=== PATIENT | female | born 1940 | race Caucasian/White ===

== ENCOUNTER → 2019-03-08 11:23 | Day surgery (SDC) | payer MEDICARE, OTHER ==
[~2019-03-08 11:23] MED LIST: Acetaminophen TAB* 325 MG PO PRN; Buffered Lidocaine 1% SYRIN* 1 ML/SYRINGE INTRADERM ONE; Dexamethasone IV* 4 MG/ML 1 ML (4 MG) ONE; Famotidine IV* 10 MG/ML 2 ML (20 mg) IV ONE; Famotidine IV* 10 MG/ML 2 ML (20 mg) ONE; KETAMINE HCL* 50 MG/ML 10 ML VIAL ONE; Ketorolac INJ* 30 MG/ML 1 ML VIAL ONE; Lactated Ringers 1000 ML Bag* 1,000 ML IV SCH; Lidocaine 1% MPF ** 5 ML VIAL ONE; Lidocaine 2% PF * 5 ML VIAL ONE; Midazolam* 1 MG/ML 5 ML VIAL (5 MG) ONE; Naloxone* 0.4 MG/ML 1 ML VIAL IV PRN; Ondansetron INJ* 2 MG/ML VIAL ONE; Propofol* 10 MG/ML 20 ML BTL ONE; ROPIVACAINE 5 MG/ML 30 ML BTL (0.5%) ONE; ceFAZolin 2 GM in NS PREMIX(*) 2 GM/100 ML BAG IVPB ONE; fentaNYL* 50 MCG/ML 2 ML VIAL (100 MCG VIAL) ONE; oxyCODONE TAB* 5 MG TAB PO PRN
[2019-03-08 17:03] VITALS: BP 139/74
--- NOTE | 2019-03-09 01:01 | OP ---
DATE OF OPERATION: 03/08/19 - [facility] DATE OF : 40 SURGEON: Rolando Grady MD MARINE ENGINEERING PROFESSOR: KATHY Unger. An production assistant was needed for the entirety of the case to help with positioning, retraction, and utilized all portions of the case. ANESTHESIOLOGIST: Dr. Cleaning. ANESTHESIA: General with interscalene block. PRE-OP DIAGNOSES: Right shoulder partial-thickness tearing of the rotator cuff , mild osteoarthritis, bicipital tendinitis. PRE-OP DIAGNOSES: Right shoulder partial-thickness tearing of the rotator cuff , mild osteoarthritis, bicipital tendinitis. OPERATIVE PROCEDURE: Right shoulder arthroscopy with: 1. Extensive glenohumeral debridement including biceps tenotomy and chondroplasty. 2. Rotator cuff repair using Regeneten patch. 3. Subacromial decompression with acromioplasty. INDICATIONS: Carmen Ulrich is a 78-year-old female who has had persistent shoulder pain for some time. She has failed conservative management including physical therapy, antiinflammatories, ice, heat, and injection. She has complicated medical history including Parkinson's disease and heart issues. She has defibrillator. Because she was unable to get an MRI, I could not tell the status of the rotator cuff, but it did not look grossly torn or retracted. We talked about the risks and benefits of surgery versus nonoperative treatment. We discussed that she may actually be a candidate for reverse shoulder arthroplasty, but that is a big surgery and she is not interested in it. We talked about arthroscopy to see if this could help alleviate her pain. The risks and benefits were discussed at length included but not limited to bleeding; infection; damage to nerves, vessels, surrounding structures; wound nonhealing; persistent pain; need for surgery; scarring; stiffness; incomplete relief of symptoms; risk of anesthesia. COMPLICATIONS: None. ESTIMATED BLOOD LOSS: Minimal. IMPLANTS USED: One Regeneten patch, size medium. DESCRIPTION OF PROCEDURE: The patient was greeted in the preoperative area by the attending surgeon. Correct extremity was marked and consent was confirmed. The patient was brought back to the operating suite where she was placed in supine position on the operating table, then underwent interscalene nerve block by anesthesiologist after which she was brought back to the operating suite. She was placed in a supine on the operating room table, after which she underwent general anesthesia with endotracheal intubation, after which she was appropriately placed in the left lateral decubitus position with an axillary roll. All bony prominences were padded. She was secured with a peg board. The right arm was draped unsterile with 10 pounds of traction. The right shoulder was then prepped and draped in the usual sterile fashion with chlorhexidine soap, scrub, and alcohol wipe, and a final prep with ChloraPrep. After appropriate surgical pause indicating site, side, procedure, administration of antibiotics, the standard posterolateral portal was made sharply with an 11 blade. The scope was introduced into the joint. The joint was examined. There was abundant synovitis present. The biceps had obvious tearing and synovitis and tendinosis. The subscap had some mild fraying. The undersurface of the rotator cuff, supra and infraspinatus had no full-thickness tear but had high-grade partial-thickness tearing. There were some grade 1 and 2 changes of the glenohumeral joint with chondrosis. The anteromedial, the anterior, superior, inferior, and posterior labrum had synovitic and unstable flaps, which were debrided back. Inferior recess was intact. Attention was then directed to the subacromial space. The scope was introduced into the subacromial space. Lateral portals were made in an [id number]. Imani were used debride back the abundant bursa that was present. The undersurface of the acromion was skeletonized using electrocautery device. CA ligament was peeled back. There was an anterolateral spur, this was debrided back using a 4-0 oval bur. The attention was then directed to the rotator cuff. Again, there was no full-thickness tear , but there were some fraying. Because the undersurface had high grade partial thickness tearing and only mild fraying subacromial, the decision was made to fix this with a Regeneten patch. Regeneten patch was brought to the field and placed under arthroscopic visualization and secured medially through a separate stab incision with tendon judy and then laterally with PEEK judy through the bone. The patch was well secured. The wound was then copiously with sterile saline. Final images were obtained. Portals were closed with 3-0 nylon. Sterile dressings were applied. Cryo/Cuff and a regular sling was applied. She was awoken from anesthesia and transferred to the PACU in stable condition. POSTOPERATIVE PLAN: She will be nonweightbearing. She will start range of motion on postop day 2. Discharged on pain medication. She will start her Xarelto again this evening. DVT prophylaxis was considered but deferred, but she is on Xarelto to prevent it anyway. I will see her back in 10 to 14 days. [id number]/[facility] #: [id number] [facility]
== END | disposition home or self-care (01) ==
LOC: OR 11:23
PROVIDERS: ATTEND Orthopaedic Surgery
DX: M75.111 Incomplete rotator cuff tear or rupture of right shoulder, not specified as traumatic (principal); M19.011 Primary osteoarthritis, right shoulder; M75.21 Bicipital tendinitis, right shoulder; G89.18 Other acute postprocedural pain; Z85.3 Personal history of malignant neoplasm of breast; Z79.01 Long term (current) use of anticoagulants; G20 Parkinson's disease; M19.90 Unspecified osteoarthritis, unspecified site; I48.91 Unspecified atrial fibrillation; Z95.0 Presence of cardiac pacemaker
CPT/HCPCS: C1713; J0690; J1100; J1885; J2250; J2405; J2704; J2795; J3010